=== PATIENT | male | born 1955 | race Two or more races ===

== ENCOUNTER 2017-01-26 03:36 | Emergency (ER) | payer SELFPAY ==
[~2017-01-26 03:36] MED LIST: ASPI-482 PO; LISI-334 PO; METF850T2 PO
[2017-01-26 03:45] VITALS: BP 178/102
--- NOTE | 2017-01-26 03:46 | PHYS DOC ---
General Stated Complaint: LEFT HIP PAIN Time Seen by MD: 03:43 Source: patient Exam Limitations: no limitations Problems: History of Present Illness Initial Comments Pt is 61/M to ED c/o L hip pain. Patient states that for the past few weeks he has had intermittent discomfort at the left inguinal/groin region. He cannot recall any trauma or exertional activity no new repetitive activities which may have caused any injury. He describes intermittent annoying discomfort at the left groin radiating down into his medial leg associated with low back stiffness. No leg weakness no saddle anesthesia and no bowel or bladder symptoms. Patient states that his symptoms are worse when he sits for a period of time. When he is at work or up and active he says that his hip pains resolve and he has no discomfort until he sits down again and become stiff. No history of left hip injury no other numbness tingling weakness or skin changes. Onset: other Severity: moderate Pain/Injury Location: left hip Method of Injury: unknown Modifying Factors: worse with jarring, worse with movement, improves with rest Allergies: Coded Allergies: shellfish derived (Verified Allergy, Severe, 10/20/13) Past Medical History Medical History: other (DM, HTN, migraine) Surgical History: noncontributory Social History Smoker: non-smoker Alcohol: none Drugs: none Review of Systems Constitutional: denies chills, denies diaphoresis, denies fever, denies malaise Respiratory: denies cough, denies shortness of breath Cardiovascular: denies chest pain, denies palpitations, denies syncope Gastrointestinal: denies abdominal pain, denies diarrhea, denies nausea, denies vomiting Musculoskeletal: see HPI Psychiatric/Neurological: denies headache, denies numbness, denies paresthesia , denies weakness Physical Exam General Appearance: WD/WN, mild distress Neck: non-tender, supple Cardiovascular/Respiratory: normal peripheral pulses, normal breath sounds Back: no CVA tenderness, no vertebral tenderness Hips: right hip non-tender, right hip normal inspection, right hip normal range of motion, right hip no evidence of injury, left hip other (iliopsoas hypertonicity with tenderness to palpation noted. There is no bony tenderness no swelling or ecchymosis, FABERE neg) Neurologic/Tendon: normal sensation, normal motor functions, normal tendon functions, responds to pain, no evidence tendon injury Psychiatric: alert, oriented x 3 Skin: normal color, warm/dry Orders, Labs, Meds I discussed iliopsoas spasm and treatment options. Patient received fentanyl and Norflex intramuscularly in the emergency department. He states he is ready for discharge work excuse for today and tomorrow as well as prescriptions sent with the patient see departure instructions. Departure Time of Disposition: 03:59 Disposition: 01 HOME, SELF-CARE Diagnosis: left iliopsoas muscle spasm Condition: GOOD Patient Instructions: Muscle Strain, [id number] Additional Instructions: Off work today and tomorrow if needed. Aggressive hydration with Gatorade or water. Heating pad to affected area 15-20 minutes at a time 4-6 times daily followed by gentle stretching. May consider child care attendant or massage therapy as adjunct therapies. OTC ibuprofen as needed for baseline pain. Prescriptions: Burchard 7.5 mg quantity 15, Flexeril 10 mg quantity 15, prednisone 20 mg quantity 10 Take medications with food to avoid nausea and vomiting. Monitor your glucose closely while taking prednisone. Follow-up with your doctor in 7-10 days if not better. Return to the ED with new or changing symptoms. KRISTI VAN DO Jan 26, 2017 03:45
[2017-01-26] MEDS ORDERED: fentaNYL PF 100 MCG/2 ML VIAL IM ONE (04:30)
[2017-01-26] MEDS ORDERED: ORPHENADRINE CITRATE 60 MG/2 ML VIAL. IM ONE (04:30)
[2017-01-26] MEDS ORDERED: OXYC-327 PO (20:15)
== END 2017-01-26 04:20 | disposition home or self-care (01) ==
LOC: ER 03:36
DX: M62.838 Other muscle spasm (principal); M25.552 Pain in left hip; E11.9 Type 2 diabetes mellitus without complications; I10 Essential (primary) hypertension; G43.909 Migraine, unspecified, not intractable, without status migrainosus; Z91.013 Allergy to seafood
CPT/HCPCS: 96372; 99284; J2360; J3010

== ENCOUNTER 2017-01-26 16:52 | Emergency (ER) | payer SELFPAY ==
[~2017-01-26] VITALS: Ht 193 cm; Wt 113.4 kg
[2017-01-26 16:52] VITALS: BP 186/103
--- NOTE | 2017-01-26 18:11 | ED.ADGEN ---
Past History Past Medical History: Diabetes, Hypertension Past Surgical History: No Surgical History Smoking: Non-smoker Alcohol Use: Occasionally Drug Use: None Adult General Chief Complaint Chief Complaint Left leg pain HPI HPI Patient is a 61 year old -Maltese Maltese male who presents with left buttocks and hip pain. States on for about a week or just hurts at nighttime and it's more in his hip joint and he points to his left inguinal area pain and discomfort. States he's thought maybe he was dehydrated so he drank a Powerade before he went to bed see if this would help and did not make any difference. He states the inguinal area would hurt and then today started hurting in his blood tox area. He states it's worse when he tries to flex it. He was seen this morning he received Norflex and fentanyl and discharged home. He states the pain has not changed at all. He states is better when he lays completely flat. He denies any testicular pain, leg swelling, new rashes, fevers or chills or chest pain. He denies any injury to the area. Review of Systems Review of Systems Constitutional: Denies fever or chills [] Eyes: Denies change in visual acuity, redness, or eye pain [] HENT: Denies nasal congestion or sore throat [] Respiratory: Denies cough or shortness of breath [] Cardiovascular: No additional information not addressed in HPI [] GI: Denies abdominal pain, nausea, vomiting, bloody stools or diarrhea [] : Denies dysuria or hematuria [] Musculoskeletal: Denies back pain, positive for left hip pain Integument: Denies rash or skin lesions [] Neurologic: Denies headache, focal weakness or sensory changes [] Endocrine: Denies polyuria or polydipsia [] Current Medications Current Medications Current Medications Medications (Trade) Dose Ordered Sig/Cayetano Start Time Stop Time Status Last Admin Dose Admin Morphine Sulfate (Morphine 10mg Syringe) 5 mg 1X ONCE 01/26/17 19:00 01/26/17 19:01 DC 01/26/17 19:26 5 MG Allergies Allergies Allergies Coded Allergies Type Severity Reaction Last Updated Verified shellfish derived Allergy Severe 10/20/13 Yes Physical Exam Physical Exam Constitutional: Well developed, well nourished, no acute distress, non-toxic appearance. [] HENT: Normocephalic, atraumatic, bilateral external ears normal, oropharynx moist, no oral exudates, nose normal. [] Eyes: PERRLA, EOMI, conjunctiva normal, no discharge. [] Neck: Normal range of motion, no tenderness, supple, no stridor. [] Cardiovascular:Heart rate regular rhythm, no murmur [] Lungs & Thorax: Bilateral breath sounds clear to auscultation [] Abdomen: Bowel sounds normal, soft, no tenderness, no masses, no pulsatile masses. [] Skin: Warm, dry, no erythema, no rash. [] Back: No tenderness, no CVA tenderness. [] Extremities: No tenderness, no cyanosis, no clubbing, ROM intact, no edema. Negative straight leg raise on the left. Dorsal pedis pulse 2+ bilateral. Neurologic: Alert and oriented X 3, normal motor function, normal sensory function, no focal deficits noted. [] Psychologic: Affect normal, judgement normal, mood normal. [] Current Patient Data Vital Signs Vital Signs Date Time Temp Pulse Resp B/P (MAP) Pulse Ox O2 Delivery O2 Flow Rate FiO2 01/26/17 19:26 20 98 Room Air 01/26/17 16:52 98.4 107 EKG EKG [] Radiology/Procedures Radiology/[place] [address] IMAGING REPORT Signed PATIENT: MARCELINA BAILEY ACCOUNT: [id number] : 1955 LOCATION: ER AGE: 61 SEX: M EXAM STATUS: REG ER ORD. PHYSICIAN: GOVIND BADILLO MD REASON: pain PROCEDURE: VENOUS LOWER EXTREMITY LEFT Left Lower Extremity Venous Doppler Ultrasound Indication: Left lower extremity pain for one week, increased in intensity for one day. Comparison: None. Procedure: Color Doppler, spectral Doppler, and grayscale images with and without compression are obtained in the area of the common femoral vein, superficial femoral vein - femoral vein junction, main femoral vein (superficial femoral vein) and popliteal vein. Veins of the proximal calf are also imaged. Findings: There is normal duplex flow, color flow and compressibility of all visualized vein segments. There is no evidence of deep venous thrombosis. Impression: No evidence of left lower extremity deep venous thrombosis. Electronically signed by: Fidel Lopez MD (01/26/2017 7:43 PM) DICTATED AND SIGNED BY: FIDEL LOPEZ MD DATE: 01/26/171942 CC: GOVIND BADILLO MD; NON,STAFF ~ 2 views of bilateral hips and AP pelvis shows no obvious fracture, bony alignment, foreign bodies, as interpreted by me. Course & Med Decision Making Course & Med Decision Making Pertinent Labs and Imaging studies reviewed. (See chart for details) X-rays and ultrasound of the hips and left lower show many nonacute. She was originally on some 7.5 hydrocodone's, 20 mg prednisone twice a day for a week and cyclobenzaprine. He states he feels like the hydrocodone is not working. He received 5 mg IM morphine and his pain is improved now. I will switch him to 7.5 mg oxycodone 1-2 tablets every 6 hours when necessary pain before meals continue prednisone and Cipro Benzapril. Patient's agreeable Plan B discharged in stable condition at this time. Final Impression Final Impression Left hip pain Problems: Dragon Disclaimer Dragon Disclaimer This electronic medical record was generated, in whole or in part, using a voice recognition dictation system. GOVIND BADILLO MD Jan 26, 2017 18:11
[2017-01-26] MEDS ORDERED: MORPHINE SULFATE 10 MG/ML SYRINGE. IM ONE (19:00)
--- NOTE | 2017-01-26 19:47 | RAD ---
Left Lower Extremity Venous Doppler Ultrasound Indication: Left lower extremity pain for one week, increased in intensity for one day. Comparison: None. Procedure: Color Doppler, spectral Doppler, and grayscale images with and without compression are obtained in the area of the common femoral vein, superficial femoral vein - femoral vein junction, main femoral vein (superficial femoral vein) and popliteal vein. Veins of the proximal calf are also imaged. Findings: There is normal duplex flow, color flow and compressibility of all visualized vein segments. There is no evidence of deep venous thrombosis. Impression: No evidence of left lower extremity deep venous thrombosis. Electronically signed by: Fidel Lopez MD (01/26/2017 7:43 PM)
[2017-01-26] MEDS ORDERED: OXYC-327 PO (20:15)
--- NOTE | 2017-01-27 08:01 | RAD ---
Pelvis with both hips, 5 views, 01/26/2017: History: Left hip pain No fracture or dislocation is identified. No destructive bone lesion is seen. The hip joints are well-maintained with only mild marginal spurring. A soft tissue calcification along the superior medial aspect of the right greater trochanter is probably tendinous. IMPRESSION: No acute bony abnormality is detected.
== END 2017-01-26 20:25 | disposition home or self-care (01) ==
LOC: ER 16:52
DX: M25.552 Pain in left hip (principal); E11.9 Type 2 diabetes mellitus without complications; I10 Essential (primary) hypertension; Z91.013 Allergy to seafood
CPT/HCPCS: 73502; 93971; 96372; 99284; J2270

== ENCOUNTER 2017-09-12 15:42 | Observation (INO) | payer BC ==
[~2017-09-12] VITALS: Ht 193 cm; Wt 115.2 kg
[~2017-09-12 15:42] MED LIST changes: +OXYC-327 PO
--- NOTE | 2017-09-12 16:36 | EKG ---
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
[2017-09-12 16:40] VITALS: BP 100/70
[2017-09-12] MEDS ORDERED: LISI1TAB7 PO (16:42)
[2017-09-12] MEDS ORDERED: SIMV10TA3 PO (16:42)
[2017-09-12 16:55] LABS: ALBUMIN/GLOBULIN RATIO 0.7 (1.0-1.7); CALCIUM 8.7 mg/dL (8.5-10.1); CREATININE 1.6 mg/dL (0.7-1.3); GFR 44.2; POTASSIUM 4.1 mmol/L (3.5-5.1); TOTAL BILIRUBIN 0.1 mg/dL (0.2-1.0); TOTAL PROTEIN 7.3 g/dL (6.4-8.2)
[2017-09-12] MEDS: IV NORMAL SALINE 1,000ML 1,000 ML IV SCH (17:00)
[2017-09-12 17:07] LABS: BASO % 1 % (0-3); EOS # 0.2 x10^3/uL (0.0-0.7); EOS % 4 % (0-3); HEMATOCRIT 32.6 % (39.0-53.0); HEMOGLOBIN 10.6 g/dL (13.0-17.5); LYMPH # 1.7 x10^3/uL (1.0-4.8); LYMPH % 33 % (24-48); MEAN CORPUSCULAR HEMOGLOBIN 28 pg (25-35); MEAN CORPUSCULAR HGB CONC 33 g/dL (31-37); MEAN CORPUSCULAR VOLUME 85 fL (79-100); MONO # 0.5 x10^3/uL (0.0-1.1); MONO % 10 % (0-9); NEUT # 2.7 x10^3uL (1.8-7.7); NEUT % 53 % (31-73); PLATELET COUNT 441 x10^3/uL (140-400); RED BLOOD COUNT 3.82 x10^6/uL (4.30-5.70); RED CELL DISTRIBUTION WIDTH 14.8 % (11.5-14.5); WHITE BLOOD COUNT 5.1 x10^3/uL (4.0-11.0)
[2017-09-12 19:00] VITALS: BP 133/78
[2017-09-12] MEDS ORDERED: DEXTROSE 50% 25 GM / 50ML DISP.SYRIN. IV PRN (19:30)
[2017-09-12] MEDS ORDERED: ENOXAPARIN 40 MG/0.4 ML DISP.SYRIN. SQ SCH (21:00)
[2017-09-12] MEDS ORDERED: ZOLPIDEM 5 MG TABLET. PO PRN (21:45)
[2017-09-12] MEDS ORDERED: SIMVASTATIN 10 MG TABLET PO SCH (22:00)
[2017-09-12 23:08] LABS: BACTERIA,URINE 0 /HPF (0-FEW); BILIRUBIN,URINE NEG (NEG); CLARITY,URINE CLEAR; COLOR,URINE YELLOW; GLUCOSE,URINE 250 mg/dL (NEG); NITRITE,URINE NEG (NEG); RBC,URINE RARE /HPF (0-2); SQUAMOUS EPITHELIAL CELL,UR FEW /LPF; UROBILINOGEN,URINE 0.2 mg/dL (0.2 mg/dL)
[2017-09-12 23:37] VITALS: BP 148/85
[2017-09-13 03:00] VITALS: BP 131/76
[2017-09-13] MEDS: IV NORMAL SALINE 1,000ML 1,000 ML IV SCH (04:17)
[2017-09-13 06:38] LABS: BASO # 0.1 x10^3/uL (0.0-0.2); BASO % 1 % (0-3); EOS # 0.2 x10^3/uL (0.0-0.7); EOS % 4 % (0-3); HEMATOCRIT 29.9 % (39.0-53.0); HEMOGLOBIN 9.7 g/dL (13.0-17.5); LYMPH # 1.7 x10^3/uL (1.0-4.8); LYMPH % 36 % (24-48); MEAN CORPUSCULAR HEMOGLOBIN 28 pg (25-35); MEAN CORPUSCULAR HGB CONC 32 g/dL (31-37); MEAN CORPUSCULAR VOLUME 85 fL (79-100); MONO # 0.5 x10^3/uL (0.0-1.1); MONO % 11 % (0-9); NEUT # 2.2 x10^3uL (1.8-7.7); NEUT % 47 % (31-73); PLATELET COUNT 377 x10^3/uL (140-400); RED BLOOD COUNT 3.53 x10^6/uL (4.30-5.70); RED CELL DISTRIBUTION WIDTH 14.6 % (11.5-14.5); WHITE BLOOD COUNT 4.7 x10^3/uL (4.0-11.0)
[2017-09-13 07:19] LABS: CALCIUM 8.4 mg/dL (8.5-10.1); CREATININE 1.2 mg/dL (0.7-1.3); GFR 61.6; POTASSIUM 4.1 mmol/L (3.5-5.1)
--- NOTE | 2017-09-13 07:57 | RAD ---
Chest, 2 views, 09/12/2017: History: Shortness of breath, weakness and dizziness Comparison is made to a study from 10/20/2013. The heart size and pulmonary vascularity are normal. There is a 1 cm nodule projected over the left upper lobe over the anterior end of the second rib. This appears unchanged since the 2013 exam. This nodule was also identified on a CT study from 09/08/2012. No acute pulmonary infiltrates are seen. There is no evidence of pleural fluid. Moderate spurring is present in the spine. IMPRESSION: 1. Persistent small left upper lobe pulmonary nodule showing no obvious change since 2013. CT scanning would more accurately delineate this nodule. 2. No acute cardiopulmonary abnormality is detected.
[2017-09-13] MEDS ORDERED: metFORMIN 850 MG TABLET PO SCH (08:00)
[2017-09-13] MEDS: INSULIN ASPART 300 UNITS/3 ML INSULN.PEN SQ SCH ×3 (08:07→17:28)
[2017-09-13 08:36] VITALS: BP 146/79
[2017-09-13] MEDS ORDERED: hydroCHLOROthiazide 25 MG TABLET PO SCH (09:00)
[2017-09-13] MEDS ORDERED: LISINOPRIL 20 MG TABLET PO SCH (09:00)
[2017-09-13] MEDS ORDERED: PNEUMOC CONJ VACC 23-VALENT 0.5 ML VIAL. VAX IM ONE (09:00)
[2017-09-13] MEDS ORDERED: IOHEXOL 300 MG/ML 75 ML VIAL. IV ONE (10:15)
[2017-09-13 11:08] LABS: HEMOGLOBIN A1C 11.6 % (4.8-5.6)
[2017-09-13 12:08] VITALS: BP 148/77
[2017-09-13 12:22] VITALS: BP 148/77
--- NOTE | 2017-09-13 12:51 | RAD ---
CTA of the chest with and without contrast Clinical indications: Increased d-dimer. Shortness of air with exertion. Recently had influenza. Weakness and tightness in the chest. Technique: Noncontrast axial localizer was performed. After IV infusion of a total of 150 cc of Omnipaque 300, helical CT scanning of the chest was performed using the CT pulmonary embolism protocol twice. Second scan was performed due to suboptimal opacification of the pulmonary arteries. A coronal MIP reconstruction was generated. PQRS Compliance Statement: One or more of the following individualized dose reduction techniques were utilized for this examination: 1. Automated exposure control 2. Adjustment of the mA and/or kV according to patient size 3. Use of iterative reconstruction technique Comparison: September 08, [address] Findings: No pulmonary embolism is evident. No thoracic aortic dissection or focal aneurysmal dilatation is seen. The heart size is normal and no pericardial effusion is seen. No enlarged thoracic lymphadenopathy is seen. No pleural effusion or pneumothorax is seen. No lung consolidation is evident. There is mild atelectasis of the posterior left costophrenic angle. There is a noncalcified lung nodule within the anterior segment of the left upper lobe measuring 13 mm in greatest dimension. This has not changed significantly in size since the previous study when similar retrospective measurements are made consistent with a benign nodule. No new lung nodule is evident. The proximal bronchial tree is patent. No osteolytic process is seen. No adrenal nodule is seen. Diffuse fatty infiltration of the liver is evident. IMPRESSION: No pulmonary embolism. Mild atelectasis of the left lung base. No other acute lung infiltrate. Stable left upper lobe lung nodule since 2012 consistent with a benign nodule.
--- NOTE | 2017-09-13 14:33 | PDOC2 ---
TAMIR HUTTON SOCIAL MEDIA MARKETING ANALYST 09/13/17 1433: CONSULT Date of Admission DATE: 09/13/17 TIME: 14:18 Reason for Consult: Abnormal EKG Referring Physician: Dr Moise History of Present Illness This is a pleasant 62-year-old male who presented to to his primary care doctor 's office with chief complaint of dizziness and shortness of breath. He has a past medical history hypertension, diabetes mellitus type 2, and hyperlipidemia.Over the last 2 weeks he had the flu and was coughing and congested. He is feeling more weak and tired and had not been as active. He started noticing lightheadedness And then went on a trip to [facility]. While they were there he did not drink as much water he was very dehydrated and the dizziness became worse. He was also noticing that he was short of breath walking short distances and when he came [place] into the country the airport was a struggle to walk through. He was very short of breath walking and had to stop and rest multiple times. He continued to be lightheaded and congested so went in to see his primary care doctor yesterday. EKG was done that showed abnormal and his blood sugar was greater than 300 so he was admitted to the hospital for an evaluation. Past medical history - hypertension, diabetes mellitus type 2, hyperlipidemia. He was came to the emergency room about 4 years ago with possible mini stroke that was ruled out, At that time he was told that he had an abnormal EKG Past surgical history - Vasectomy Social history -she lives at home with his . He denies any tobacco use. He drinks alcohol occasionally. He denies any drug use. Family history- his father from colon cancer and his mother at age 84 of natural causes. Premature coronary artery disease does not run in his family. Allergies - shellfish Medications -lisinopril hydrochlorothiazide 20/ 25 mg daily, simvastatin 10 mg daily, and metformin which he does not take always. Review of systems- review of 10 organ systems is negative except for as above. Physical examination GENERAL: This is a well developed, well nourished male. No apparent distress. SKIN: Warm and dry with normal skin turgor. Negative for pallor. No lesions or rashes noted. EYES: Conjunctiva are clear. Extraocular movements are intact. No xanthelasma. HEAD AND NECK: Oral mucosa is moist. There is no cyanosis. Neck is supple. Jugular venous pressure is flat. Carotid pulses are 2/2 bilaterally. No carotid bruits. There is no obvious thyromegaly. HEART: Regular rate and rhythm. Normal S1 and S2. No S3. No S4. No significant murmur. No rub. PMI is not displaced. LUNGS: Effort is good. There is symmetric expansion bilaterally. Clear to auscultation bilaterally. No wheezes. No crackles. No rhonchi. ABDOMEN: Normal active bowel sounds. Soft. Nontender. EXTREMITIES: No clubbing. No cyanosis. No edema of lower extremities. Palpable pedal pulses. MUSCULOSKELETAL: No kyphosis. No scoliosis. No localized tenderness or stiffness. Gait appears normal. NEUROLOGIC: Alert and oriented times three. Cranial nerves III-XII are grossly intact. Good motor tone and strength in the upper and lower extremities bilaterally. PSYCHOLOGIC: This is a pleasant patient with a normal affect EKG shows sinus rhythm with left axis deviation -compared to previous EKG nonspecific T-wave abnormality is no longer detected. Laboratory data hemoglobin 9.7 3 sets of negative cardiac enzymes, total cholesterol 131 triglycerides 358 HDL 32 and LDL of 28. CT of the chest showed no pulmonary emboli there is mild atelectasis in the left lower base and is stable lung nodule. Impression and plan 1. Abnormal EKG - With recent dyspnea on exertion. He is having his echocardiogram done today and if it is unremarkable he can discharge home and will plan to do an outpatient stress test on him. He does have significant risk factors with hypertension, hyperlipidemia and diabetes mellitus that a follow-up stress test would be beneficial. Will add enteric-coated 81 mg aspirin to his regimen and continue statin therapy. 2. Hypertension-his blood pressure is well controlled on current medical therapy will continue same. 3. Hyperlipidemia his LDL is well controlled with simvastatin will plan to add fish oil for his high triglycerides. 4. Diabetes mellitus type 2 - uncontrolled. Plan per primary care. Discussed medication compliance. Current Medications Current Medications Sodium Chloride 1,000 ml @ 100 mls/hr Q10H IV Last administered on 09/13/17at 04:17; Start 09/12/17 at 18:15; Stop 09/13/17 at 09:59; Status DC Insulin Aspart (NovoLOG) 0-9 UNITS TIDAC SQ Last administered on 09/13/17at 11: 55; Start 09/13/17 at 07:30 Dextrose 12.5 gm PRN Q15MIN PRN IV SEE COMMENTS; Start 09/12/17 at 19:30 Enoxaparin Sodium (Lovenox) 40 mg Q24H SQ Last administered on 09/12/17at 21:27 ; Start 09/12/17 at 21:00 Pneumococcal Polyvalent Vaccine (Pneumovax 23) 0.5 ml ONCE ONCE VAX IM ; Start 09/13/17 at 09:00; Stop 09/13/17 at 09:01; Status DC Metformin HCl (Glucophage) 850 mg TIDWMEALS PO ; Start 09/13/17 at 08:00; Stop 09/13/17 at 08:00; Status DC Simvastatin (Zocor) 10 mg QHS PO Last administered on 09/12/17at 22:18; Start at 22:00 Lisinopril (Prinivil) 20 mg DAILY PO Last administered on 09/13/17at 08:11; Start 09/13/17 at 09:00 Hydrochlorothiazide (Hydrodiuril) 25 mg DAILY PO Last administered on at 08:10; Start 09/13/17 at 09:00 Zolpidem Tartrate (Ambien) 5 mg PRN QHS PRN PO INSOMNIA, MAY REPEAT IN 1HR; Start 09/12/17 at 21:45 Glyburide (Diabeta) 5 mg BIDWMEALS PO ; Start 09/13/17 at 17:00 Iohexol (Omnipaque 300 Mg/ml) 75 ml 1X ONCE IV Last administered on 09/13/17at 10:34; Start 09/13/17 at 10:15; Stop 09/13/17 at 10:16; Status DC Aspirin (Aspirin Enteric Coated) 81 mg DAILYWBKFT PO ; Start 09/14/17 at 08:00 Active Scripts Active Reported Lisinopril-Hctz 20-25 Mg Tab (Lisinopril/Hydrochlorothiazide) 1 Each Tablet 1 Tab PO DAILY Simvastatin 10 Mg Tablet 1 Tab PO QHS Metformin Hcl 850 Mg Tablet 850 Mg PO TID Allergies: Coded Allergies: shellfish derived (Verified Allergy, Severe, 10/20/13) VITALS Vital Signs Date Time Temp Pulse Resp B/P (MAP) Pulse Ox O2 Delivery O2 Flow Rate FiO2 09/13/17 12:22 98.0 72 18 148/77 (100) 97 Room Air Labs Laboratory Tests Test 09/12/17 16:11 09/12/17 16:12 09/12/17 21:50 09/12/17 22:00 White Blood Count 5.1 x10^3/uL (4.0-11.0) Red Blood Count 3.82 x10^6/uL (4.30-5.70) Hemoglobin 10.6 g/dL (13.0-17.5) Hematocrit 32.6 % (39.0-53.0) Mean Corpuscular Volume 85 fL (79-100) Mean Corpuscular Hemoglobin 28 pg (25-35) Mean Corpuscular Hemoglobin Concent 33 g/dL (31-37) Red Cell Distribution Width 14.8 % (11.5-14.5) Platelet Count 441 x10^3/uL (140-400) Neutrophils (%) (Auto) 53 % (31-73) Lymphocytes (%) (Auto) 33 % (24-48) Monocytes (%) (Auto) 10 % (0-9) Eosinophils (%) (Auto) 4 % (0-3) Basophils (%) (Auto) 1 % (0-3) Neutrophils # (Auto) 2.7 x10^3uL (1.8-7.7) Lymphocytes # (Auto) 1.7 x10^3/uL (1.0-4.8) Monocytes # (Auto) 0.5 x10^3/uL (0.0-1.1) Eosinophils # (Auto) 0.2 x10^3/uL (0.0-0.7) Basophils # (Auto) 0.0 x10^3/uL (0.0-0.2) D-Dimer (Rosie) 0.57 mg/L (0.00-0.50) Sodium Level 135 mmol/L (136-145) Potassium Level 4.1 mmol/L (3.5-5.1) Chloride Level 100 mmol/L (98-107) Carbon Dioxide Level 27 mmol/L (21-32) Anion Gap 8 (6-14) Blood Urea Nitrogen 20 mg/dL (8-26) Creatinine 1.6 mg/dL (0.7-1.3) Estimated GFR (Cockcroft-Gault) 44.2 BUN/Creatinine Ratio 13 (6-20) Glucose Level 277 mg/dL (70-99) Hemoglobin A1c 11.6 % (4.8-5.6) Calcium Level 8.7 mg/dL (8.5-10.1) Total Bilirubin 0.1 mg/dL (0.2-1.0) Aspartate Amino Transf (AST/SGOT) 18 U/L (15-37) Alanine Aminotransferase (ALT/SGPT) 31 U/L (16-63) Alkaline Phosphatase 74 U/L (46-116) Creatine Kinase 226 U/L (39-308) Creatine Kinase MB (Mass) 2.0 ng/mL (0.0-3.6) Creatine Kinase MB Relative Index 0.9 % (0-4) Troponin I Quantitative < 0.017 ng/mL (0-0.055) Total Protein 7.3 g/dL (6.4-8.2) Albumin 3.0 g/dL (3.4-5.0) Albumin/Globulin Ratio 0.7 (1.0-1.7) Nasal Screen MRSA (PCR) Negative (Negative) Glucose (Fingerstick) 245 mg/dL (70-99) Urine Collection Type Unknown Urine Color Yellow Urine Clarity Clear Urine pH 5.0 Urine Specific [place] 1.020 Urine Protein Neg (NEG-TRACE) Urine Glucose (UA) 250 mg/dL (NEG) Urine Ketones (Stick) Neg mg/dL (NEG) Urine Blood Neg (NEG) Urine Nitrite Neg (NEG) Urine Bilirubin Neg (NEG) Urine Urobilinogen Dipstick 0.2 mg/dL (0.2 mg/dL) Urine Leukocyte Esterase Neg (NEG) Urine RBC Rare /HPF (0-2) Urine WBC 1-4 /HPF (0-4) Urine Squamous Epithelial Cells Few /LPF Urine Ammonium Biurate Crystals /HPF Urine Bacteria 0 /HPF (0-FEW) Urine Mucus Mod /LPF Test 09/12/17 22:10 09/13/17 05:50 09/13/17 11:29 Creatine Kinase 170 U/L (39-308) 126 U/L (39-308) Creatine Kinase MB (Mass) 1.2 ng/mL (0.0-3.6) 1.1 ng/mL (0.0-3.6) Creatine Kinase MB Relative Index 0.7 % (0-4) 0.9 % (0-4) Troponin I Quantitative < 0.017 ng/mL (0-0.055) < 0.017 ng/mL (0-0.055) White Blood Count 4.7 x10^3/uL (4.0-11.0) Red Blood Count 3.53 x10^6/uL (4.30-5.70) Hemoglobin 9.7 g/dL (13.0-17.5) Hematocrit 29.9 % (39.0-53.0) Mean Corpuscular Volume 85 fL (79-100) Mean Corpuscular Hemoglobin 28 pg (25-35) Mean Corpuscular Hemoglobin Concent 32 g/dL (31-37) Red Cell Distribution Width 14.6 % (11.5-14.5) Platelet Count 377 x10^3/uL (140-400) Neutrophils (%) (Auto) 47 % (31-73) Lymphocytes (%) (Auto) 36 % (24-48) Monocytes (%) (Auto) 11 % (0-9) Eosinophils (%) (Auto) 4 % (0-3) Basophils (%) (Auto) 1 % (0-3) Neutrophils # (Auto) 2.2 x10^3uL (1.8-7.7) Lymphocytes # (Auto) 1.7 x10^3/uL (1.0-4.8) Monocytes # (Auto) 0.5 x10^3/uL (0.0-1.1) Eosinophils # (Auto) 0.2 x10^3/uL (0.0-0.7) Basophils # (Auto) 0.1 x10^3/uL (0.0-0.2) Reticulocyte Count (auto) 1.8 % (0.5-2.5) Sodium Level 137 mmol/L (136-145) Potassium Level 4.1 mmol/L (3.5-5.1) Chloride Level 103 mmol/L (98-107) Carbon Dioxide Level 28 mmol/L (21-32) Anion Gap 6 (6-14) Blood Urea Nitrogen 18 mg/dL (8-26) Creatinine 1.2 mg/dL (0.7-1.3) Estimated GFR (Cockcroft-Gault) 61.6 Glucose Level 270 mg/dL (70-99) Calcium Level 8.4 mg/dL (8.5-10.1) Iron Level 15 ug/dL (65-175) Total Iron Binding Capacity 301 ug/dL (250-450) Iron Saturation 5 % (15-34) Triglycerides Level 358 mg/dL (0-150) Cholesterol Level 131 mg/dL (0-200) LDL Cholesterol, Calculated 28 mg/dL (0-100) VLDL Cholesterol, Calculated 71 mg/dL (0-40) Non-HDL Cholesterol Calculated 99 mg/dL (0-129) HDL Cholesterol 32 mg/dL (40-60) Cholesterol/HDL Ratio 4.0 Glucose (Fingerstick) 352 mg/dL (70-99) CINDY ACOSTA Jr, MD 09/14/17 0859: CONSULT Allergies: Coded Allergies: shellfish derived (Verified Allergy, Severe, 10/20/13) Assessment/Plan The patient was seen by Tamir Hutton APRN and I have reviewed her findings and plan and agree with above. Due to staffing constraints, we did not have an attending available on this day to see the patient. Problems: TAMIR HUTTON APRN Sep 13, 2017 14:33 CINDY ACOSTA Jr, MD Sep 14, 2017 08:59
--- NOTE | 2017-09-13 15:37 | CARD ---
MR#: [id number] Date of Study: 09/13/2017 Ordering Physician: NORA KAM, Referring Physician: NORA KAM, [place]: Malissa Moffett [facility] APPROVED REPORT EXAM: Two-dimensional and M-mode echocardiogram with Doppler and color Doppler. Other Information Quality : Fair INDICATION Abnormal ECG Dyspnea Dizzy 2D DIMENSIONS Left Atrium(2D)3.9 (1.6-4.0cm)IVSd0.9 (0.7-1.1cm) Aortic Root(2D)3.1 (2.0-3.7cm)LVDd5.2 (3.9-5.9cm) LVOT Diameter2.5 (1.8-2.4cm)PWd1.0 (0.7-1.1cm) LVDs2.1 (2.5-4.0cm)FS (%) 51.0 % SV115.7 mlLVEF(%)70.0 (>50%) CO0.0 L/min Mitral Valve MV E Pxomujsh96.8cm/sMV DECEL [id number] MV A Wzzjhgvd135.3cm/sE/A Ratio0.7 Pulmonary Valve PV Peak Zmalmhxi13.7cm/sPV Peak Grad.4mmHg Tricuspid Valve TR P. Jrvrafyq18sk/sRAP [id number] TR Peak Gr.60sxPuLEAP84anZz LEFT VENTRICLE The left ventricle is normal size. There is normal left ventricular wall thickness. The left ventricu lar systolic function is normal and the ejection fraction is within normal range. The Ejection Fracti on is 65-70%. There is normal LV segmental wall motion. The left ventricular diastolic function and f illing is normal for age. RIGHT VENTRICLE The right ventricle is normal size. There is normal right ventricular wall thickness. The right ventr icular systolic function is normal. ATRIA The left atrium size is normal. The right atrium size is normal. The interatrial septum is intact wit h no evidence for an atrial septal defect or patent foramen ovale as noted on 2-D or Doppler imaging. AORTIC VALVE The aortic valve is normal in structure and function. Doppler and Color Flow revealed no significant aortic regurgitation. There is no significant aortic valvular stenosis. MITRAL VALVE Mild calcification of the anterior mitral valve leaflet. There is no evidence of mitral valve prolaps e. There is no mitral valve stenosis. Doppler and Color Flow revealed no mitral valve regurgitation n oted. TRICUSPID VALVE The tricuspid valve is normal in structure and function. Doppler and Color Flow revealed trace tricus pid regurgitation. There is no tricuspid valve stenosis. PULMONIC VALVE Doppler and Color Flow revealed no pulmonic valvular regurgitation. There is no pulmonic valvular kendrick nosis. GREAT VESSELS The aortic root is normal in size. The IVC is normal in size and collapses >50% with inspiration. PERICARDIAL EFFUSION There is no pleural effusion. There is no evidence of significant pericardial effusion. Critical Notification Critical Value: No <Conclusion> The left ventricular systolic function is normal and the ejection fraction is within normal range. Th e Ejection Fraction is 65-70%. There is normal LV segmental wall motion. Signed by : Renzo Lehman, Electronically Approved : 09/13/2017 15:37:06
[2017-09-13] MEDS ORDERED: glyBURIDE 5 MG TABLET PO SCH (17:00)
[2017-09-13] MEDS ORDERED: ASPI-630 PO (17:17)
[2017-09-13] MEDS ORDERED: GLYB5TAB3 PO (17:17)
[2017-09-13] MEDS ORDERED: INSU100I17 SQ ×2 (17:21→17:25)
[2017-09-14] MEDS ORDERED: ASPIRIN ENTERIC COATED 81 MG TABLET.DR. PO SCH (08:00)
== END 2017-09-13 18:00 | disposition home or self-care (01) ==
LOC: ICU 15:42 → INTOOBSV 15:42
PROVIDERS: ADMIT Family Medicine; ATTEND Family Medicine
DX: R55 Syncope and collapse (principal); E11.65 Type 2 diabetes mellitus with hyperglycemia; E11.69 Type 2 diabetes mellitus with other specified complication; I10 Essential (primary) hypertension; E78.5 Hyperlipidemia, unspecified; R06.02 Shortness of breath; R53.83 Other fatigue; R42 Dizziness and giddiness; Z80.0 Family history of malignant neoplasm of digestive organs; Z82.49 Family history of ischemic heart disease and other diseases of the circulatory system
CPT/HCPCS: 36415; 71046; 71275; 80048; 80053; 80061; 81001; 82553; 82947; 83036; 83540; 83550; 84484; 85025; 85045; 85379; 87641; 93005; 93306; 96361; 96372; G0378; G0379; J1650; J1815; Q9967; J7030

== ENCOUNTER 2020-04-25 16:25 | Emergency (ER) | payer SELFPAY ==
[~2020-04-25] VITALS: Ht 193 cm; Wt 115.4 kg
[~2020-04-25 16:25] MED LIST changes: +ASPI-630 PO; +GLYB5TAB3 PO; +INSU100I17 SQ; +LISI1TAB20 PO; -METF850T2 PO; +METF850T8 PO; -OXYC-327 PO; +OXYC1TAB19 PO; +SIMV10TA15 PO
[2020-04-25] MEDS ORDERED: ASPIRIN CHEWABLE 81 MG TABLET. PO ONE (17:00)
[2020-04-25] MEDS ORDERED: IV RINGERS SOLUTION,LACTATED 1,000 ML IV SCH (17:00)
[2020-04-25] MEDS ORDERED: ENOXAPARIN ** NOTE DOSE ** SYRINGE SQ ONE ×2 (17:00→20:30)
[2020-04-25] MEDS ORDERED: AZITHROMYCIN 250 MG TABLET. PO ONE (17:00)
--- NOTE | 2020-04-25 17:00 | PHYS DOC ---
Past History Past Medical History: Diabetes, Hypertension, Other Past Surgical History: No Surgical History Smoking: Non-smoker Alcohol Use: Occasionally Drug Use: None General Adult EDM: Chief Complaint: SHORTNESS OF BREATH HPI: HPI: "....I am feeling really bad... I was tested + for COVID.. I got result s to day.. I was stuck down in [facility].. For over 6 months because of her no flights out because of COVID.. Just went down there for short visit with 4 relatives with relatives.... And she had them think I got sick until I started back..." Patient is a 64 year old male black who presents with above hx and dyspnea with a positive COVID. Patient recently stuck in [facility] for 6 months after what was to be a weekend on a short trip to visit his relatives. Since coming back has developed fever, chills, dyspnea, fatigue, myalgia, arthralgia and a nonproductive cough,. Patient states none of the family members in [facility] were sick. Another household member here in [place] has a positive COVID test. No previous history of immunosuppression. Has past medical history of hypertension and diabetes.. No history immunosuppression. No history of TB. Patient has been self isolating at home with other family members. Cjezlb-lk-[id number] is in the room next to patient and has similar symptoms. Review of Systems: Review of Systems: Constitutional: Complains of fever or chills Eyes: Denies change in visual acuity HENT: Denies nasal congestion or sore throat Respiratory: Complains of nonproductive cough and shortness of breath Cardiovascular: Denies chest pain or edema GI: Denies abdominal pain, nausea, vomiting, bloody stools or diarrhea : Denies dysuria Musculoskeletal: Complains of generalized myalgia and arthralgia Integument: Denies rash Neurologic: Denies headache, focal weakness or sensory changes Endocrine: Denies polyuria or polydipsia Lymphatic: Denies swollen glands Psychiatric: Denies depression or anxiety Heart Score: HEART Score for Chest Pain: HEART Score for Chest Pain Response (Comments) Value History Moderately Suspicious 1 ECG Nonspecific Repolarizatio 1 Age >45 - < 65 1 Risk Factors 1 or 2 Risk Factors 1 Troponin >1-<3x Normal Limit 1 Total 5 Risk Factors: Risk Factors: DM, Current or recent (<one month) smoker, HTN, HLP, family history of CAD, obesity. Risk Scores: Score 0 - 3: 2.5% MACE over next 6 weeks - Discharge Home Score 4 - 6: 20.3% MACE over next 6 weeks - Admit for Clinical Observation Score 7 - 10: 72.7% MACE over next 6 weeks - Early Invasive Strategies Family History: Family History: Other family members have tested positive for COVID Current Medications: Current Meds: See nursing for home meds Allergies: Allergies: Allergies Coded Allergies Type Severity Reaction Last Updated Verified shellfish derived Allergy Severe 10/20/13 Yes Physical Exam: PE: Constitutional: Moderate acute distress, ill in appearance. [] HENT: Normocephalic, atraumatic, bilateral external ears normal, oropharynx moist, no oral exudates, nose swollen turbinates and clear rhinorrhea] Eyes: PERRLA, EOMI, conjunctiva normal, no discharge. [] Neck: Normal range of motion, no tenderness, supple, no stridor. [] Cardiovascular: Tachycardia heart rate regular rhythm, PMI to the left. Occasional PVC per monitor Lungs & Thorax: Bilateral breath sounds scattered wheezes throughout on auscultation. Bibasilar crackles Abdomen: Bowel sounds normal, soft, no tenderness, no masses, no pulsatile masses. [] Skin: Warm, diaphoretic, no erythema, no rash. [] Back: No tenderness, no CVA tenderness. [] Extremities: Generalized muscle tenderness, no cyanosis, no clubbing, ROM intact, no edema. No cording appreciated Neurologic: Alert and oriented X 3, moves all extremities on request. Does have distal sensory, no focal deficits noted. [] Psychologic: Affect anxious , judgement normal, mood normal. [] EKG: EKG: My interpretation EKG shows a sinus tachycardia at 101 bpm. Does have bimodal P waves. Left axis, nonspecific contour changes no findings of acute STEMI or contralateral changes but does have a nonspecific T wave strain pattern does appear to be an abnormal EKG [] Radiology/Procedures: Radiology/Procedures: [][address] [address] IMAGING REPORT Signed PATIENT: MARCELINA BAILEY EACCOUNT: [id number] : 1955 LOCATION: ER AGE: 64 SEX: M EXAM STATUS: REG ER ORD. PHYSICIAN: JEREMIAH ROLAND MD REASON: dyspnea, + COVID, return from [facility] PROCEDURE: PORTABLE CHEST 1V EXAM: AP View of the chest DATE: 04/25/2020 5:00 PM INDICATION: dyspnea, + COVID, return from [facility] COMPARISON: 09/12/2017 FINDINGS: Heart is not enlarged. Aorta is mildly tortuous. Right infrahilar and left lung base airspace opacities may represent developing consolidative process as pneumonia. No pleural effusion or pneumothorax. IMPRESSION: Right infrahilar and left lung base airspace opacities may represent developing consolidative process as pneumonia. Electronically signed by: Nael Martines MD (04/25/2020 6:28 PM) [facility] DI[facility]ATED AND SIGNED BY: NAEL MARTINES MD DATE: 04/25/20 1828 CC: JEREMIAH ROLAND MD; PCP,UNKNOWN ~ Course & Med Decision Making: Course & Med Decision Making Pertinent Labs and Imaging studies reviewed. (See chart for details) Reviewed options with patient. Patient currently wishes to be discharged back home. Will start patient on Zithromax and continue 250 a day. Usually MDI 2 puffs 4 times a day. Patient follow-up with primary care. Will need following up of atypical pneumonia most likely COVID. Patient also had a right hilar infiltrate concern for TB should also be considered due to his travel to [facility]. Follow-up pending cultures. Will cover for possible DVT and PE with starting Eliquis 5 mg twice daily for 7 days then 5 mg a day for 5 days. D iscussed this was discussed with patient as an option to cover for DVT and pulmonary embolisms. Must return if no improvement. Must return if increased hypoxia. Patient push fluids. Tylenol and ibuprofen for pain and fever. Risk of discharge discussed at length patient exhibits UCAR capacity. Pt. still request discharge home. Patient must self isolate. Must wear a mask covering his nose and mouth at all times and contacts outside of his home. Patient return if any concerns. Impression: 1. COVID+ 2. Pneumonia- Atypical 3. Anemia Hg. 9.7 Micro cytic Hypochromic 74/23 4. DM 222 5. Elevated CRP 18.3 6. Elevate NCJ=051, 7. Elevated LFTs AST T1 44, ALT 247, alk phos 162 8. Elevated d-dimer 0.65 9. Elevated segs= 88 [] Kellie Disclaimer: Kellie Disclaimer: This electronic medical record was generated, in whole or in part, using a voice recognition dictation system. Departure Departure: Disposition: HOME/RESIDENCE PRIOR TO ADM Condition: STABLE Referrals: PCP,UNKNOWN (PCP) Scripts Azithromycin (ZITHROMAX) 250 Mg Tablet 250 MG PO DAILY for ANTI-BIOTIC for 7 Days, #7 TAB 0 Refills Prov: JEREMIAH ROLAND MD 04/25/20 Apixaban (ELIQUIS) 5 Mg Tablet 5 MG PO DAILY for COVID for 7 Days, #7 TAB Prov: JEREMIAH ROLAND MD 04/25/20 Apixaban (ELIQUIS) 5 Mg Tablet 5 MG PO BID for COVID for 7 Days, #14 TAB Prov: JEREMIAH ROLAND MD 04/25/20 Justification of Admission: Justification of Admission: Justification of Admission Dx: Yes Comments: Kellie MISHRA Disclaimer This chart was dictated in whole or in part using Voice Recognition software in a busy, high-work load, and often noisy Emergency Department environment. It may contain unintended and wholly unrecognized errors or omissions. JEREMIAH ROLAND MD Apr 25, 2020 17:00
[2020-04-25 17:22] LABS: BASO % 0 % (0-3); EOS % 0 % (0-3); HEMATOCRIT 31.8 % (39.0-53.0); HEMOGLOBIN 9.7 g/dL (13.0-17.5); LYMPH # 1.1 x10^3/uL (1.0-4.8); LYMPH % 19 % (24-48); MEAN CORPUSCULAR HEMOGLOBIN 23 pg (25-35); MEAN CORPUSCULAR HGB CONC 31 g/dL (31-37); MEAN CORPUSCULAR VOLUME 74 fL (79-100); MONO # 0.7 x10^3/uL (0.0-1.1); MONO % 13 % (0-9); NEUT # 3.8 x10^3uL (1.8-7.7); NEUT % 68 % (31-73); PLATELET COUNT 300 x10^3/uL (140-400); RED BLOOD COUNT 4.32 x10^6/uL (4.30-5.70); RED CELL DISTRIBUTION WIDTH 17.3 % (11.5-14.5); WHITE BLOOD COUNT 5.6 x10^3/uL (4.0-11.0)
[2020-04-25 17:28] LABS: AMPHETAMINE/METHAMPHETAMINE NEG (NEG); BARBITURATES NEG (NEG); BENZODIAZEPINES NEG (NEG); CANNABINOIDS NEG (NEG); COCAINE NEG (NEG); METHADONE NEG (NEG); OPIATES NEG (NEG); PHENCYCLIDINE NEG (NEG)
[2020-04-25 17:33] LABS: BILIRUBIN,URINE NEG (NEG); CLARITY,URINE HAZY; COLOR,URINE YELLOW; GLUCOSE,URINE NEG (NEG)
[2020-04-25 17:34] LABS: BACTERIA,URINE 0 /HPF (0-FEW); NITRITE,URINE NEG (NEG); RBC,URINE 0 /HPF (0-2); WBC,URINE 0 /HPF (0-4)
[2020-04-25 17:38] LABS: CALCIUM 8.5 mg/dL (8.5-10.1); CREATININE 1.8 mg/dL (0.7-1.3); GFR 38.3; POTASSIUM 4.3 mmol/L (3.5-5.1)
[2020-04-25 17:42] LABS: ALBUMIN 2.8 g/dL (3.4-5.0); C REACTIVE PROTEIN 18.3 mg/L (0-3.3); DIRECT BILIRUBIN 0.2 mg/dL (0.0-0.2); MAGNESIUM 2.2 mg/dL (1.8-2.4); TOTAL BILIRUBIN 0.4 mg/dL (0.2-1.0); TOTAL PROTEIN 6.7 g/dL (6.4-8.2)
[2020-04-25] MEDS ORDERED: IV NORMAL SALINE 50ML 50 ML ONE (17:42)
[2020-04-25] MEDS ORDERED: cefTRIAXone SODIUM 1 GM VIAL ONE (17:42)
--- NOTE | 2020-04-25 18:03 | EKG ---
[facility] ED [facility] [address] [place] [address] Test Date: 2020-04-25 Test Time: 17:28:28 Pat Name: MARCELINA BAILEY Department: Room: Gender: M [place]: : 1955 Requested By: JEREMIAH ROLAND Order Number: [id number] Reading MD: Measurements Intervals [place] Rate: 101 P: 47 NC: 156 QRS: -2 QRSD: 94 T: 34 QT: 348 QTc: 458 Interpretive Statements SINUS TACHYCARDIA LEFT ATRIAL ABNORMALITY LEFTWARD AXIS QRS(T) CONTOUR ABNORMALITY CONSIDER ANTEROSEPTAL MYOCARDIAL DAMAGE T ABNORMALITY IN ANTEROLATERAL LEADS ABNORMAL ECG RI6.02 No previous ECG available for comparison
--- NOTE | 2020-04-25 18:32 | RAD ---
EXAM: AP View of the chest DATE: 04/25/2020 5:00 PM INDICATION: dyspnea, + COVID, return from [facility] COMPARISON: 09/12/2017 FINDINGS: Heart is not enlarged. Aorta is mildly tortuous. Right infrahilar and left lung base airspace opacities may represent developing consolidative process as pneumonia. No pleural effusion or pneumothorax. IMPRESSION: Right infrahilar and left lung base airspace opacities may represent developing consolidative process as pneumonia. Electronically signed by: Nael Santamaria MD (04/25/2020 6:28 PM) [facility]
[2020-04-25 18:36] VITALS: BP 143/86
[2020-04-25 19:54] LABS: % BANDS 1 % (0-9); % BASOS 1 % (0-3); % LYMPHS 24 % (24-48); % MONOS 6 % (0-10); % SEGS 68 % (35-66); HYPOCHROMIA SLIGHT; PLT ESTIMATE ADEQUATE (ADEQUATE)
[2020-04-25 19:55] LABS: ANISOCYTOSIS SLIGHT; MICROCYTOSIS SLIGHT
[2020-04-25] MEDS ORDERED: APIX5TAB3 PO ×2 (21:42)
[2020-04-25] MEDS ORDERED: AZIT250T PO (21:42)
[2020-04-25] MEDS ORDERED: ALBUTEROL SULFATE 8GM INHALER. INH ONE (21:45)
[2020-04-26 19:16] LABS: BGAS PH 7.43 (7.35-7.46)
== END 2020-04-25 22:00 | disposition home or self-care (01) ==
LOC: ER 16:25
DX: U07.1 COVID-19 (principal); J12.89 Other viral pneumonia; D64.9 Anemia, unspecified; R79.82 Elevated C-reactive protein (CRP); R79.89 Other specified abnormal findings of blood chemistry; R79.1 Abnormal coagulation profile; E11.9 Type 2 diabetes mellitus without complications; I10 Essential (primary) hypertension; Z91.013 Allergy to seafood
CPT/HCPCS: 36415; 36600; 71045; 80048; 80076; 80307; 81001; 82550; 82803; 83605; 83690; 83735; 83880; 84443; 84484; 85007; 85025; 85379; 85610; 85730; 86140; 87040; 93005; 94640; 96361; 96365; 96372; 99285; J0456; J0696; J1650; J7120; J7613; 94664